=== PATIENT | female | born 1955 | race Caucasian/White ===

== ENCOUNTER 2017-06-26 09:37 | Outpatient (CLI) | payer BC | END 2017-06-26 09:38 | disposition home or self-care (01) | LOC: BICMAMMO 09:37 | PROVIDERS: ATTEND Family Medicine | DX: Z12.31 Encounter for screening mammogram for malignant neoplasm of breast (principal); Z13.820 Encounter for screening for osteoporosis; Z78.0 Asymptomatic menopausal state; M85.80 Other specified disorders of bone density and structure, unspecified site | CPT/HCPCS: 77063; 77067; 77080 ==

== ENCOUNTER 2018-08-31 14:21 | Outpatient (CLI) | payer BC ==
--- NOTE | 2018-08-31 15:33 | MRI ---
MRI CERVICAL SPINE WITHOUT CONTRAST:: HISTORY: Cervical myelopathy.. COMPARISON: None. FINDINGS: Appropriate T1 marrow signal intensity of the cervical vertebrae. Cervical spine vertebral body heig ht is maintained. No fracture. 1.6 mm of anterolisthesis of C3 upon C4. Straightening of normal cervical lordosis may be due to patient position, muscle spasm or cervical collar. No significant STI R hyperintensity to suggest ligamentous injury or vertebral body edema. Visualized brain parenchyma, cervicomedullary junction, cervical cord and the upper thoracic cord are normal size and signal intensity. C2-C3: No significant central canal stenosis. Bilaterally, neural foramina are patent. Left facet hyp ertrophy. C3-C4: Generalized disc bulge without significant central canal stenosis. Bilaterally, neural foramin a are patent. Mild right facet hypertrophy. C4-C5: Minimal left paracentral/central disc bulge. No significant central canal stenosis. Bilaterall y, neural foramina are patent. C5-C6: Broad-based disc bulge with a left paracentral component. Flattening of the thecal sac without obscuration of the subarachnoid space. Mild central canal stenosis. Right neural foramen is patent. Mild left neural foraminal narrowing due to uncovertebral hypertrophy C6-C7: Central disc bulge abuts the thecal sac. Mild central canal stenosis. Neural foramina are nunes nt. C7-T1: No significant central canal stenosis. Neural foramina are patent. IMPRESSION: Mild degenerative changes of the cervical spine as detailed above. No evidence of high-grade central canal stenosis or high-grade foraminal narrowing. Transcribed Date/Time: 08/31/2018 3:41 PM
== END 2018-08-31 14:22 | disposition home or self-care (01) ==
LOC: BICMRI 14:21
PROVIDERS: ATTEND Psychiatry & Neurology Neurology
DX: M47.12 Other spondylosis with myelopathy, cervical region (principal)
CPT/HCPCS: 72141

== ENCOUNTER 2021-08-08 12:22 | Outpatient (CLI) | payer BC | END 2021-08-08 12:23 | disposition home or self-care (01) | LOC: BICMAMMO 12:22 | PROVIDERS: ATTEND Family Medicine | DX: Z12.31 Encounter for screening mammogram for malignant neoplasm of breast (principal) | CPT/HCPCS: 77063; 77067 ==

== ENCOUNTER 2022-10-23 09:50 | Outpatient (CLI) | payer MEDICARE, OTHER | END 2022-10-23 09:51 | disposition home or self-care (01) | LOC: BICMAMMO 09:50 | PROVIDERS: ATTEND Family Medicine | DX: Z12.31 Encounter for screening mammogram for malignant neoplasm of breast (principal); Z13.820 Encounter for screening for osteoporosis; M81.0 Age-related osteoporosis without current pathological fracture; Z78.0 Asymptomatic menopausal state | CPT/HCPCS: 77063; 77067; 77080 ==

== ENCOUNTER 2024-04-22 10:49 | Outpatient (CLI) | payer MEDICARE, OTHER | END 2024-04-22 10:50 | disposition home or self-care (01) | LOC: BICMAMMO 10:49 | PROVIDERS: ATTEND Family Medicine | DX: Z12.31 Encounter for screening mammogram for malignant neoplasm of breast (principal) | CPT/HCPCS: 77063; 77067 ==